=== PATIENT | male | born 1985 | race African-American/Black ===

== ENCOUNTER 2020-09-28 20:25 | Emergency (ER) | payer BC ==
[~2020-09-28] VITALS: Ht 172.7 cm; Wt 91.3 kg
--- NOTE | 2020-09-28 20:42 | PHYS DOC ---
General Adult EDM: Chief Complaint: LACERATION/AVULSION HPI: HPI: Patient is a 34 year oldouu-pmyu-zod male presents for evaluation of laceration to right lower extremity. Prior to arrival patient's son hit right lower extremity with his toy tractor. On exam patient has a 2 cm laceration right anterior s hin. Tetanus in 2011. Review of Systems: Review of Systems: Constitutional: Denies fever or chills. [] Eyes: Denies change in visual acuity. [] HENT: Denies nasal congestion or sore throat. [] Respiratory: Denies cough or shortness of breath. [] Cardiovascular: Denies chest pain or edema. [] GI: Denies abdominal pain, nausea, vomiting, bloody stools or diarrhea. [] : Denies dysuria. [] Musculoskeletal: Denies back pain or joint pain. [] Integument: Positive laceration Neurologic: Denies headache, focal weakness or sensory changes. [] Endocrine: Denies polyuria or polydipsia. [] Lymphatic: Denies swollen glands. [] Psychiatric: Denies depression or anxiety. [] Heart Score: C/O Chest Pain: N/A Risk Factors: Risk Factors: DM, Current or recent (<one month) smoker, HTN, HLP, family history of CAD, obesity. Risk Scores: Score 0 - 3: 2.5% MACE over next 6 weeks - Discharge Home Score 4 - 6: 20.3% MACE over next 6 weeks - Admit for Clinical Observation Score 7 - 10: 72.7% MACE over next 6 weeks - Early Invasive Strategies Allergies: Allergies: Allergies Coded Allergies Type Severity Reaction Last Updated Verified acetaminophen Allergy Unknown NAUSEA/VOMITING 09/28/20 Yes oxycodone Allergy Unknown NAUSEA/VOMITING 09/28/20 Yes Physical Exam: PE: Constitutional: Well developed, well nourished, no acute distress, non-toxic appearance. [] HENT: Normocephalic, atraumatic, bilateral external ears normal, oropharynx moist, no oral exudates, nose normal. [] Eyes: PERRLA, EOMI, conjunctiva normal, no discharge. [] Neck: Normal range of motion, no tenderness, supple, no stridor. [] Cardiovascular:Heart rate regular rhythm, no murmur [] Lungs & Thorax: Bilateral breath sounds clear to auscultation [] Abdomen: Bowel sounds normal, soft, no tenderness, no masses, no pulsatile masses. [] Skin: 2 cm laceration right anterior milner. No tendon involvement no foreign body Back: No tenderness, no CVA tenderness. [] Extremities: No tenderness, no cyanosis, no clubbing, ROM intact, no edema. [] Neurologic: Alert and oriented X 3, normal motor function, normal sensory function, no focal deficits noted. [] Psychologic: Affect normal, judgement normal, mood normal. [] EKG: EKG: [] Radiology/Procedures: Radiology/Procedures: [] Course & Med Decision Making: Course & Med Decision Making Pertinent Labs and Imaging studies reviewed. (See chart for details) [] Procedures 2 cm laceration right anterior milner. Wound was cleaned with Betadine and explored no foreign bodies identified. It was achieved with approximately 3 cc lidocaine with epi. Once successful anesthesia was achieved 2 sutures 3.0 nylon simple interrupted sutures placed. No complications. Patient tolerated procedure. Patient was discharged home. Wound was bandaged by nursing. Patient's tetanus updated. Patient advised to have sutures out in 7 to 10 days. Song Disclaimer: Song Disclaimer: This electronic medical record was generated, in whole or in part, using a voice recognition dictation system. Departure Departure Impression: Primary Impression: Laceration Disposition: HOME / SELF CARE / HOMELESS Condition: STABLE Patient Instructions: Laceration Care, Adult EMILY RANGEL DO Sep 28, 2020 20:42
[2020-09-28 21:00] VITALS: BP 121/65
[2020-09-28] MEDS ORDERED: DIPH,PERTUSS(ACELL),TET VAC/PF 0.5 ML SYRINGE. VAX IM ONE (21:00)
== END 2020-09-28 21:05 | disposition home or self-care (01) ==
LOC: ER 20:25
DX: S81.811A Laceration without foreign body, right lower leg, initial encounter (principal); Z88.6 Allergy status to analgesic agent; Z88.5 Allergy status to narcotic agent; W26.8XXA Contact with other sharp object(s), not elsewhere classified, initial encounter; Y93.89 Activity, other specified; Y92.89 Other specified places as the place of occurrence of the external cause; Y99.8 Other external cause status
CPT/HCPCS: 12001; 90471; 90715; 99283